=== PATIENT | female | born 2000 | race Two or more races ===

== ENCOUNTER 2020-09-15 09:01 | Emergency (ER) | payer MEDICAID, OTHER ==
[~2020-09-15] VITALS: Ht 162.6 cm; Wt 83.9 kg
[2020-09-15 10:00] LABS: Urine Bacteria FEW /hpf (None Seen); Urine Blood Negative /uL (Negative); Urine Mucus FEW (None Seen); Urine WBC 6 /hpf (0 - 5)
[2020-09-15 10:08] VITALS: BP 113/67
== END 2020-09-15 10:38 | disposition home or self-care (01) ==
LOC: ER 09:01
DX: O21.8 Other vomiting complicating pregnancy (principal); O23.13 Infections of bladder in pregnancy, third trimester; Z3A.31 31 weeks gestation of pregnancy
CPT/HCPCS: 81001

== ENCOUNTER 2020-09-15 10:52 | Observation (INO) | payer MEDICAID ==
[~2020-09-15] VITALS: Ht 162.6 cm; Wt 83.9 kg
[2020-09-15] MEDS ORDERED: TERBUTALINE SULFATE 1 MG/ML 1ML VIAL SC SCH (11:30)
[2020-09-15] MEDS ORDERED: LACTATED RINGER'S 1,000 ML IV ONE (11:30)
== END 2020-09-15 13:05 | disposition home or self-care (01) ==
LOC: LDRP 10:52
PROVIDERS: ADMIT Specialist; ATTEND Specialist
DX: O26.893 Other specified pregnancy related conditions, third trimester (principal); R10.9 Unspecified abdominal pain; R19.7 Diarrhea, unspecified; O21.2 Late vomiting of pregnancy; Z3A.31 31 weeks gestation of pregnancy
CPT/HCPCS: 59025; 81002; 94760; 96360; 96361; 96372; G0378; J3105

== ENCOUNTER 2020-11-08 13:09 | Observation (INO) | payer MEDICAID | END 2020-11-08 16:21 | disposition home or self-care (01) | LOC: LDRP 15:10 | PROVIDERS: ADMIT Obstetrics & Gynecology; ATTEND Obstetrics & Gynecology | DX: O41.03X0 Oligohydramnios, third trimester, not applicable or unspecified (principal); Z3A.38 38 weeks gestation of pregnancy | CPT/HCPCS: 59025; 76818; 81002; 94760; G0378 ==

== ENCOUNTER 2020-11-12 11:09 | Observation (INO) | payer MEDICAID | END 2020-11-12 12:29 | disposition home or self-care (01) | LOC: LDRP 11:09 | PROVIDERS: ADMIT Obstetrics & Gynecology; ATTEND Obstetrics & Gynecology | DX: O48.0 Post-term pregnancy (principal); Z3A.40 40 weeks gestation of pregnancy | CPT/HCPCS: 59025; 76818; 81002; G0378; G0379 ==

== ENCOUNTER 2020-11-14 07:21 | Observation (INO) | payer MEDICAID | END 2020-11-14 15:33 | disposition home or self-care (01) | LOC: LDRP 14:06 | PROVIDERS: ADMIT Obstetrics & Gynecology; ATTEND Obstetrics & Gynecology | DX: O48.0 Post-term pregnancy (principal); Z3A.40 40 weeks gestation of pregnancy | CPT/HCPCS: 59025; 76818; 81002; 94760; G0378 ==

== ENCOUNTER 2020-11-16 09:13 | Observation (INO) | payer MEDICAID | END 2020-11-16 17:18 | disposition home or self-care (01) | LOC: LDRP 16:07 | PROVIDERS: ADMIT Obstetrics & Gynecology; ATTEND Obstetrics & Gynecology | DX: O48.0 Post-term pregnancy (principal); O62.9 Abnormality of forces of labor, unspecified; Z3A.40 40 weeks gestation of pregnancy | CPT/HCPCS: 59025; 76818; 81002; 94760; G0378; G0379 ==

== ENCOUNTER 2020-11-18 07:00 | Inpatient (IN) | payer MEDICAID ==
[~2020-11-18] VITALS: Ht 165.1 cm; Wt 93.9 kg
[2020-11-18] MEDS ORDERED: DERMOPLAST 60ML BOTTLE TOP PRN (08:30)
[2020-11-18] MEDS ORDERED: WITCH HAZEL-GLYCERIN PAD TOP PRN (08:30)
[2020-11-18] MEDS ORDERED: PROMETHAZINE HCL 25 MG/ML 1ML IV PRN (08:30)
[2020-11-18] MEDS ORDERED: PHISODERM TOP SOLN 240ML BTL TOP PRN (08:30)
[2020-11-18] MEDS ORDERED: TERBUTALINE SULFATE 1 MG/ML 1ML VIAL SC ONE (08:30)
[2020-11-18] MEDS ORDERED: BUTORPHANOL TARTRATE 2 MG/1 ML VIAL IV PRN ×2 (08:30)
[2020-11-18] MEDS ORDERED: LIDOCAINE 2%HCL (LOCAL ANESTH.) INJ 20ML MDV IJ PRN (08:30)
[2020-11-18] MEDS ORDERED: LACT. RINGERS/OXYTOCIN 20UNITS 1,000 ML IV SCH (08:30)
[2020-11-18] MEDS ORDERED: LACT. RINGERS/OXYTOCIN 20UNITS 500 ML IV ONE ×2 (08:30→09:00)
[2020-11-18] MEDS ORDERED: PREN-96 PO (09:01)
[2020-11-18 09:33] LABS: Basophils # (auto) 0 10 ^3/uL (0-0.2); Basophils % (auto) 0.5 % (0.0-2.0); Eosinophils # (auto) 0.1 10 ^3/uL (0-0.8); Eosinophils % (auto) 1.3 % (0.0-7.0); Hematocrit 37.1 % (36.0-46.0); Hemoglobin 12.2 g/dL (12.2-16.2); Lymphocytes # (auto) 1.6 10 ^3/uL (0.4-5.4); Lymphocytes % (auto) 18.1 % (10.0-50.0); Mean Corpuscular Hemoglobin 27.5 pg (28.0-32.0); Mean Corpuscular Volume 83.3 fL (80.0-100.0); Monocytes # (auto) 0.7 10 ^3/uL (0-1.3); Monocytes % (auto) 8.3 % (0.0-12.0); Neutrophils # (auto) 6.2 10 ^3/uL (1.6-8.6); Neutrophils % (auto) 71.8 % (37.0-80.0); Red Blood Cells 4.45 10^6/uL (4.0-5.20); Red Cell Distribution Width 15.8 % (11.8-14.3); White Blood Cell 8.6 10^3/uL (4.4-10.8)
[2020-11-18 09:35] LABS: Urine Bacteria NONE SEEN /hpf (None Seen); Urine Blood Negative /uL (Negative); Urine Hyaline Cast FEW /lpf (0 - 2); Urine Specific Gravity 1.021 (1.001-1.035); Urine WBC 1 /hpf (0 - 5)
[2020-11-18] MEDS: LACTATED RINGER'S 1,000 ML IV SCH ×3 (09:36→20:45)
[2020-11-18 09:49] LABS: Alcohol, Urine < 3.0 mg/dL (0-10); Amphetamine Screen, Urine NEGATIVE (NEGATIVE); Barbiturate Scree,Urine NEGATIVE (NEGATIVE); Benzodiazephine Screen, Urine NEGATIVE (NEGATIVE); Cannabinoid Screen, Urine NEGATIVE (NEGATIVE); Cocaine Screen, Urine NEGATIVE (NEGATIVE); Opiate Scree,Urine NEGATIVE (NEGATIVE); Phencyclidine Screen, Urine NEGATIVE (NEGATIVE)
[2020-11-18 09:50] LABS: Albumin 2.4 g/dL (3.4-5.0); Calcium 8.6 mg/dL (8.5-10.1)
[2020-11-18 09:51] LABS: INR 0.92 (0.9-1.15)
[2020-11-18 09:52] LABS: BUN/Creatinine Ratio 14.3
[2020-11-18 09:55] LABS: Bilirubin, Total 0.2 mg/dL (0.2-1.0); Total Protein 6.4 g/dL (6.4-8.2)
[2020-11-18] MEDS: miSOPROStol 50 MCG per PRE-CUT 1/2 TAB PO PRN ×3 (10:23→20:58)
[2020-11-18] MEDS ORDERED: ROPIVACAINE HCL 200 ML EPI SCH ×2 (22:30→23:30)
[2020-11-18] MEDS ORDERED: LACTATED RINGER'S 1,000 ML IV ONE (22:30)
[2020-11-18] MEDS ORDERED: ePHEDrine SULFATE 50 MG/ML AMP IV ONE (22:30)
[2020-11-18] MEDS ORDERED: fentaNYL CITRATE 100 MCG/2 ML VL IV ONE (22:30)
[2020-11-18] MEDS ORDERED: LIDOCAINE HCL 2 %PF INJ 10ML AMP IJ ONE (22:30)
[2020-11-18] MEDS ORDERED: NALOXONE HCL 0.4 MG/ML VIAL IV ONE (22:30)
[2020-11-18] MEDS ORDERED: LIDOCAINE 2% (LOCAL ANESTH.) PF 5ml SDV ONE (22:34)
[2020-11-19] MEDS: LACTATED RINGER'S 1,000 ML IV SCH (00:28)
[2020-11-19 07:00] VITALS: BP 105/67
[2020-11-19] MEDS ORDERED: IBUPROFEN 600 MG TAB PO PRN (07:30)
[2020-11-19] MEDS ORDERED: ACETAMINOPHEN 325 MG TAB PO PRN (07:30)
[2020-11-19 11:00] VITALS: BP 113/63
[2020-11-19 15:00] VITALS: BP 109/54
[2020-11-19 19:30] VITALS: BP 110/73
[2020-11-19 23:00] VITALS: BP 85/42
[2020-11-19] MEDS ORDERED: MEASLES, MUMPS & RUBELLA VAC(MMRII) 0.5ML SC ONE (23:30)
[2020-11-19] MEDS ORDERED: TETANUS-DIPTH-ACEL PERTUSSIS 0.5ML SYR Tdap IM ONE (23:30)
[2020-11-20 03:10] VITALS: BP 104/64
[2020-11-20 07:18] VITALS: BP 117/59
[2020-11-20 10:56] VITALS: BP 109/69
[2020-11-21 03:06] LABS: RPR Non Reactive (Non Reactive)
[2020-11-21 05:07] LABS: Rubella Antibodies, IgG <0.90 index (Immune >0.99)
== END 2020-11-20 11:36 | disposition home or self-care (01) | DRG 560 ==
LOC: LDRP 07:00
PROVIDERS: ADMIT Obstetrics & Gynecology; ATTEND Obstetrics & Gynecology
PROC: 10E0XZZ Delivery of Products of Conception, External Approach (ICD-10-PCS; principal; 2020-11-19)
PROC: 0KQM0ZZ Repair Perineum Muscle, Open Approach (ICD-10-PCS; 2020-11-19)
PROC: 3E0R3BZ Introduction of Anesthetic Agent into Spinal Canal, Percutaneous Approach (ICD-10-PCS; 2020-11-19)
PROC: 00HU33Z Insertion of Infusion Device into Spinal Canal, Percutaneous Approach (ICD-10-PCS; 2020-11-19)
DX: O48.0 Post-term pregnancy (principal); Z37.0 Single live birth; O69.81X0 Labor and delivery complicated by cord around neck, without compression, not applicable or unspecified; O70.1 Second degree perineal laceration during delivery; O77.0 Labor and delivery complicated by meconium in amniotic fluid; Z20.822 Contact with and (suspected) exposure to COVID-19; Z3A.41 41 weeks gestation of pregnancy
CPT/HCPCS: 36415; 59025; 59409; 62282; 80053; 80307; 81001; 81002; 85025; 85610; 85730; 86592; 86762; 86850; 86900; 86901; 87426; 90715; 94760; 96360; 96361; 96365; 96366; 96372; 96374; 96375; G0378; J2001; J2590

== ENCOUNTER 2024-12-28 09:38 | Emergency (ER) | payer MEDICAID ==
[~2024-12-28] VITALS: Ht 162.6 cm; Wt 80.0 kg
[~2024-12-28 09:38] MED LIST: PREN-96 PO
[2024-12-28 09:39] VITALS: BP 118/76; PULSE 59; RESP 20; TEMP 98; O2SAT 100
--- NOTE | 2024-12-28 10:22 | ED.PDOC ---
History of Present Illness HPI Comments 24-year-old female presents to the ER with the chief complaint of abnormal vaginal bleeding. Patient reports on being nine weeks and having light vaginal bleeding which started last night onset today. Patient notes that she currently has light cramping and is taking her vitamins. Patient's OBGYN is Dr. Vigil. Patient is currently . Denies any other symptoms at this time. Denies chills, fever, N/V/D, SOB, CP. No other associated symptoms, modifiers, recent injuries or sick contacts present at this time. Chief Complaint: Vaginal Bleed Time Seen by MD: 10:20 Reviewed Notes: Nurses Notes, Medications, Allergies Allergies: Coded Allergies: NO KNOWN ALLERGIES (Unverified , 11/18/20) Home Meds Reported Medications Vit W/ Ferrous Fumara ( One Daily) Daily Tab, 1 TAB PO DAILY, #90 TAB 3 Refills 11/18/20 Information Source: Patient Mode of Arrival: Ambulatory Severity: Moderate Timing: Hours Duration: Since onset, Hours Prehospital treatment: None Past Medical History PAST MEDICAL HISTORY: Denies Past Medical History (Other): Surgical History: Denies all surgeries TERRAPIN FISHER History: Denies all TERRAPIN FISHER Hx Family History Family History: Reviewed,noncontributory to illness, Unknown Social History Smoker: Non-Smoker Alcohol: Denies ETOH Use Drugs: Denies Drug Use Lives In: Home Constitutional: denies: chills, diaphoresis, fatigue, fever, malaise, sweats, weakness, others EENTM: denies: blurred vision, double vision, ear bleeding, ear discharge, ear drainage, ear pain, ear ringing, eye pain, eye redness, hearing loss, mouth p ain, mouth swelling, nasal discharge, nose bleeding, nose congestion, nose pain, photophobia, tearing, throat pain, throat swelling, voice changes, others Respiratory: denies: cough, hemoptysis, orthopnea, SOB at rest, shortness of br eath, SOB with excertion, stridor, wheezing, others Cardiovascular: denies: chest pain, dizzy spells, diaphoresis, Dyspnea on exertion, edema, irregular heart beat, left arm pain, lightheadedness, palpitations, PND, syncope, others Gastrointestinal: denies: abdomen distended, abdominal pain, blood streaked bowels, constipated, diarrhea, dysphagia, difficulty swallowing, hematemesis, melena, nausea, poor appetite, poor fluid intake, rectal bleeding, rectal pain, vomiting, others Genitourinary: reports: abnormal vagina bleeding, ; denies: burning, dyspareunia, dysuria, flank pain, frequency, hematuria, incontinence, pain, vagina discharge, urgency, others Neurological: denies: dizziness, fainting, headache, left sided numbness, left sided weakness, numbness, paresthesia, pre-existing deficit, right sided numbness, right sided weakness, seizure, speech problems, tingling, tremors, weakness, others Musculoskeletal: denies: back pain, gout, joint pain, joint swelling, muscle pain, muscle stiffness, neck pain, others Integumetry: denies: bruises, change in color, change in hair/nails, dryness, laceration, lesions, lumps, rash, wounds, others Allergic/Immunocompromised: denies: Difficulty Healing, Frequent Infections, Hives, Itching, others Hematologic/Lymphatic: denies: anemia, blood clots, easy bleeding, easy bruising, swollen glands, others Endocrine: denies: excessive hunger, excessive sweating, excessive thirst, excessive urination, flushing, intolerance to cold, intolerance to heat, unexplained weight gain, unexplained weight loss, others Psychiatric: denies: anxiety, bipolar disorder, depression, hopeless, panic disorder, schizophrenia, sleepless, suicidal, others All Other Systems: Reviewed and Negative Physical Exam General Appearance: Moderate Distress, Normal HEENT: Normal ENT Inspection, Pharynx Normal, TMs Normal Neck: Full Range of Motion, Non-Tender, Normal, Normal Inspection Respiratory: Chest Non-Tender, Lungs Clear, No Accessory Muscle Use, No Respiratory Distress, Normal Breath Sounds Cardiovascular: No Edema, No JVD, No Murmur, No Gallop, Normal Peripheral Pulses, Regular Rate/Rhythm Breast Exam: Deferred Gastrointestinal: No Organomegaly, Non Tender, No Pulsatile Mass, Normal Bowel Sounds, Soft Genitalia: Deferred Pelvic: Deferred Rectal: Deferred Extremities: No calf tenderness, Normal capillary refill, Normal inspection, Normal range of motion, Non-tender, No pedal edema Musculoskeletal : Apperance: Normal Neurologic: Alert, bilingual sales representative II-XII nml as Tested, No Motor Deficits, Normal Affect, Normal Mood, No Sensory Deficits Cerebellar Function: Normal Reflexes: Normal Skin: Dry, Normal Color, Warm Peripheral Pulses: 3+ Radial (R), 3+ Radial (L) Lymphatic: No Adenopathy Was a procedure done? Was a procedure done?: No Differential Dx Considerations may include: Anemia Subchorionic hemorrhage X-Ray, Labs, Meds, VS Vital Signs Date Time Temp Pulse Resp B/P (MAP) Pulse Ox O2 Delivery O2 Flow Rate FiO2 12/28/24 09:39 98.0 59 20 118/76 100 98.0 Lab Test 12/28/24 13:14 12/28/24 10:39 Range/Units Urine Color Yellow Yellow Urine Clarity Clear Clear Urine pH 5.5 5.0-9.0 Urine Specific [place] 1.027 1.001-1.035 Urine Protein Negative Negative Urine Ketones Trace Negative Urine Blood Negative Negative /uL Urine Nitrite Negative Negative Urine Bilirubin Negative Negative Urine Urobilinogen Normal Negative mg/dL Urine Leukocyte Esterase 1+ Negative /uL Urine RBC 5 0 - 4 /hpf Urine Microscopic WBC 3 0-5 /HPF Urine Squamous Epithelial Cells Few <5 /hpf Urine Bacteria None seen None Seen /hpf Urine Mucus Few None Seen Urine Glucose Normal Normal mg/dL Beta-Hydroxybutyric Acid 0.108 < 0.4 mmol/L Patient alert. Complaining of vaginal bleeding. Vitals stable. Answering questions. Ultrasound reviewed does show subchorionic hemorrhage. UA shows UTI. Was given prescription of Keflex antibiotic. Explained to the patient. Was told to follow up with her OBGYN. Was told to follow up with her primary care physician. Was told to come back if there is any problem. Time of 1ST Reevaluation: 10:50 Reevaluation 1ST: Improved Patient Education/Counseling: Diagnosis, Treatment, Prognosis Family Education/Counseling: No Family Present SEPSIS Sepsis Screen Date sepsis recognized/suspect: Dec 28, 2024 Time Sepsis recognized/suspect: 0942 Recent Procedure: No On Antibiotic Therapy: No Respiratory Rate >20: No Heart Rate >90: No Temp<36 C (96.8 F) or >38.3 C: No SBP <90 or MAP <65 mmHG: No New Acute Mental Status Change: No Is the patient on CPAP, BIPAP,: No Physician Orders Ob Ultrasound Comp Less 14wks (12/28/24 10:21) Vital Signs Date Time Temp Pulse Resp B/P (MAP) Pulse Ox O2 Delivery O2 Flow Rate FiO2 12/28/24 09:39 98.0 59 20 118/76 100 98.0 Departure 1 Departure Time of Disposition: 11:54 Impression: Primary Impression: Normal Qualified Codes: Z34.90 - Encounter for supervision of normal , un specified, unspecified trimester Additional Impression: UTI (urinary tract infection) Qualified Codes: N30.00 - Acute cystitis without hematuria Disposition: 01 HOME / SELF CARE / HOMELESS Condition: Good e-Prescriptions Cephalexin (KEFLEX CAPSULE) 250 Mg Cp 1 CAP PO QID for 5 Days, #20 CAP Prov: HERBERTH DOUGHERTY MD 12/28/24 Discharged With: Self Critical Care Note Critical Care Time?: No Stability Stability form required: No Heart Score Heart Score: Heart Score Response (Comments) Value History N/A 0 EKG N/A 0 Age N/A 0 Risk Factors N/A 0 Troponin N/A 0 Total 0 I personally scribed for HERBERTH DOUGHERTY MD ([email or web address]) on 12/28/24 at 10:22. Electronically submitted by Ministerio Pineda ([email or web address]). HERBERTH DOUGHERTY MD Dec 28, 2024 10:22
--- NOTE | 2024-12-28 11:31 | DVH ---
CLINICAL HISTORY: bleeding TECHNIQUE: Ultrasound examination of the female pelvis was performed transabdominally. COMPARISON: None FINDINGS: The uterus measures 10.4 x 7.8 x 7.7 CM. The myometrial echotexture is homogenous. No focal myometri al abnormality is seen. There is a single live intrauterine dated at 9 weeks 3 days by current ultrasound biometry. The crown-rump length is 2.6 cm. The heart rate is 175 beats per minute the amniotic fluid vo lume is visually normal in sac shape appears appropriate. There is a 2.6 cm subchorionic bleed. The right ovary is not seen, likely obscured by overlying bowel gas. The left ovary measures 3.4 x 4.1 x 2.8 cm. Normal color doppler flow and vascular waveforms. There is no free fluid. IMPRESSION: Single live intrauterine with a composite age of 9 weeks 3 days. 2.6 cm subchorionic bleed. Nonvisualization of the right ovary.
[2024-12-28 14:21] LABS: Urine Protein, UAD Negative (Negative)
[2024-12-28] MEDS ORDERED: CEPH250C PO (15:46)
== END 2024-12-28 16:23 | disposition home or self-care (01) ==
LOC: ER 09:38
DX: O23.41 Unspecified infection of urinary tract in pregnancy, first trimester (principal); N39.0 Urinary tract infection, site not specified; Z3A.09 9 weeks gestation of pregnancy
CPT/HCPCS: 36415; 76801; 81001; 82010